=== PATIENT | female | born 1970 | race Caucasian/White ===

== ENCOUNTER → 2024-09-16 | Outpatient (CLI) | payer MEDICARE, MEDICAID ==
[~2024-09-16] VITALS: Ht 160 cm; Wt 205.0 kg
[~2024-09-16] MED LIST: LIDOCAINE 2% 100MG/5ML SDV (FOR ANES.) ONE; propofoL 200 MG/20 ML VIAL ONE
[2024-09-16 10:20] VITALS: BP 145/87; TEMP 98.6; O2SAT 95
== END ==
LOC: M RADPRO 09:45
PROVIDERS: ATTEND Nurse Practitioner Family
DX: M54.12 Radiculopathy, cervical region (principal); M50.221 Other cervical disc displacement at C4-C5 level; M50.222 Other cervical disc displacement at C5-C6 level; M50.223 Other cervical disc displacement at C6-C7 level

== ENCOUNTER → 2025-01-06 | Outpatient (CLI) | payer MEDICARE, MEDICAID ==
[2025-01-06 13:30] VITALS: TEMP 97.6
[2025-01-06 15:30] VITALS: BP 121/82; O2SAT 95
== END ==
LOC: M RADPRO 13:01
PROVIDERS: ATTEND Nurse Practitioner Family
DX: M47.894 Other spondylosis, thoracic region (principal)

== ENCOUNTER → 2025-09-17 | Outpatient (CLI) | payer MEDICARE, MEDICAID ==
[~2025-09-17] VITALS: Ht 160 cm; Wt 83.9 kg
[~2025-09-17] MED LIST changes: +KETOROLAC 30 MG/ML 1 ML VIAL IV ONE; +LABETALOL 100 MG/20 ML VIAL ONE; +LEVO200T4 PO; +LIDOCAINE 2% 100 MG/5 ML SDV (FOR ANES.) ONE; -LIDOCAINE 2% 100MG/5ML SDV (FOR ANES.) ONE; +MIDAZOLAM INJ 2 MG/2 ML VIAL As Ordered ONE; +NEXI40CA PO; +NORV5TAB PO; +ROPI1TAB73 PO; +ROPI2TAB46 PO; -propofoL 200 MG/20 ML VIAL ONE
[2025-09-17 12:05] VITALS: TEMP 97.6
[2025-09-17 14:10] VITALS: BP 156/97; O2SAT 97
== END ==
LOC: M RADPRO 11:48
PROVIDERS: ATTEND Student in an Organized Health Care Education/Training Program
DX: M54.9 Dorsalgia, unspecified (principal); D18.09 Hemangioma of other sites
CPT/HCPCS: 72146; J1920; J2250